=== PATIENT | female | born 1990 | race Hispanic/Latino ===

== ENCOUNTER 2022-12-10 11:00 | Observation (INO) | payer MEDICAID ==
[~2022-12-10] VITALS: Ht 157.5 cm; Wt 132.4 kg
[2022-12-10 10:22] VITALS: BP 135/63
[~2022-12-10 11:00] MED LIST: MVIT PO
[2022-12-15] VITALS (26 sets, daily range): BP systolic 103–146; BP diastolic 42–85
[2022-12-15] MEDS ORDERED: LACTATED RINGERS 1000ML 1,000 ML IV ONE (09:06)
[2022-12-15] MEDS ORDERED: CEFAZOLIN SODIUM 1 GM VIAL ONE (09:06)
[2022-12-15] MEDS ORDERED: SUCCINYLCHOLINE CHLORIDE 20 MG/ML 10 ML VIAL ONE (12:09)
[2022-12-15] MEDS ORDERED: PROPOFOL 10 MG/ML 20ML VIAL IV ONE (12:09)
[2022-12-15] MEDS ORDERED: MIDAZOLAM HCL 1 MG/ML 2ML VIAL ONE ×2 (12:10→14:19)
[2022-12-15] MEDS ORDERED: ROCURONIUM 10MG/1ML SYR 10 MG/ML ML ONE (12:10)
[2022-12-15] MEDS ORDERED: FENTANYL CITRATE PF 50 MCG/1 ML 2ML VIAL ONE ×2 (12:10→13:29)
[2022-12-15] MEDS ORDERED: ONDANSETRON 4MG INJ IVP PRN (13:30)
[2022-12-15] MEDS ORDERED: ACETAMINOPHEN 325 MG TAB PO PRN (13:30)
[2022-12-15] MEDS ORDERED: MORPHINE 2 MG SYG IV PRN (13:30)
[2022-12-15] MEDS ORDERED: INSULIN HUMULIN R 100 UNIT/ML 3ML SQ PRN (13:30)
[2022-12-15] MEDS ORDERED: MORPHINE 4 MG SYG IV PRN (13:30)
[2022-12-15] MEDS ORDERED: BUPIVACAINE/PF 0.5% 30ML VIAL ONE (13:46)
[2022-12-15] MEDS ORDERED: MEPERIDINE-PF 25 MG/ML SYG ONE ×3 (13:54→14:13)
[2022-12-15] MEDS: CEFAZOLIN SODIUM 2 GM VIAL IVPB SCH ×2 (15:42→21:06)
[2022-12-15] MEDS: LACTATED RINGERS 1000ML 1,000 ML IV SCH (16:48)
[2022-12-15] MEDS: KETOROLAC 30MG VIAL (30MG/ML) IM PRN ×2 (17:13→23:46)
[2022-12-15] MEDS: HYDROMORPHONE 1 MG INJ IVP PRN (18:38)
[2022-12-16] MEDS: LACTATED RINGERS 1000ML 1,000 ML IV SCH ×2 (01:48→16:10)
[2022-12-16 02:30] VITALS: BP 98/80
[2022-12-16] MEDS: HYDROMORPHONE 1 MG INJ IVP PRN ×4 (03:47→17:52)
[2022-12-16 04:22] VITALS: BP 98/80
[2022-12-16 05:10] LABS: BASOPHILS % (AUTO) 0.1 % (0.0-5.0); EOSINOPHILS % (AUTO) 1.1 % (0.0-8.0); LYMPHOCYTES % (AUTO) 20.2 % (21.0-51.0); MEAN CORPUSCULAR HEMOGLOBIN 26.3 pg (27.0-33.0); MEAN CORPUSCULAR VOLUME 84.7 fL (79-99); NEUTROPHILS % (AUTO) 73.1 % (40.0-77.0); PLATELET COUNT (AUTO) 262 K/uL (130-400); RED BLOOD CELL COUNT(AUTO) 4.72 MIL/uL (4.00-5.50); RED CELL DISTRIBUTION WIDTH 13.6 % (11.0-15.5); WHITE BLOOD COUNT (AUTO) 13.7 K/uL (4.8-10.8)
[2022-12-16 08:17] VITALS: BP 123/58
[2022-12-16 11:27] VITALS: BP 119/70
[2022-12-16] MEDS: HEPARIN 5,000 UNIT VIAL SQ SCH ×2 (14:11→20:37)
[2022-12-16] MEDS: KETOROLAC 30MG VIAL (30MG/ML) IM PRN ×2 (14:30→20:39)
[2022-12-16 16:12] VITALS: BP 112/69
[2022-12-16 19:00] VITALS: BP 155/75
[2022-12-17] VITALS: BP 121/79
[2022-12-17] MEDS: HYDROMORPHONE 1 MG INJ IVP PRN (02:31)
[2022-12-17 04:00] VITALS: BP 128/75
[2022-12-17] MEDS: LACTATED RINGERS 1000ML 1,000 ML IV SCH (04:42)
[2022-12-17 05:26] LABS: BASOPHILS % (AUTO) 0.1 % (0.0-5.0); EOSINOPHILS % (AUTO) 3.5 % (0.0-8.0); HEMATOCRIT 39.7 % (36-48); LYMPHOCYTES % (AUTO) 23.9 % (21.0-51.0); MEAN CORPUSCULAR HGB CONC 30.7 g/dL (32.0-36.0); MEAN CORPUSCULAR VOLUME 84.5 fL (79-99); MONOCYTES % (AUTO) 5.6 % (3.0-13.0); NEUTROPHILS % (AUTO) 66.5 % (40.0-77.0); PLATELET COUNT (AUTO) 209 K/uL (130-400); RED CELL DISTRIBUTION WIDTH 13.7 % (11.0-15.5); WHITE BLOOD COUNT (AUTO) 13.8 K/uL (4.8-10.8)
[2022-12-17 07:39] VITALS: BP 131/72
[2022-12-17] MEDS: KETOROLAC 30MG VIAL (30MG/ML) IM PRN (09:47)
[2022-12-17] MEDS: HEPARIN 5,000 UNIT VIAL SQ SCH ×2 (09:52→14:00)
[2022-12-17 11:28] VITALS: BP 118/62
== END 2022-12-17 16:52 | disposition home or self-care (01) ==
LOC: DAHIP 12-15 08:55 → EDSTATUS 12-15 11:00 → 4DH 12-15 14:32
PROVIDERS: ADMIT Surgery; ATTEND Surgery
DX: K43.2 Incisional hernia without obstruction or gangrene (principal); Z20.822 Contact with and (suspected) exposure to COVID-19; I10 Essential (primary) hypertension; E66.9 Obesity, unspecified; Z79.899 Other long term (current) drug therapy
CPT/HCPCS: 84703; 87426; 36415 ×3; 49595; 96365; 96366; 96375; 82948 ×6; 81025; 96376 ×2; 96372 ×2; 85025 ×2; A6260; G0378 ×50; A4663; J7120 ×2; A4452; A4649; J3010 ×2; J0690 ×3; J1170 ×6; J0330; J2250 ×2; J3490; J2270; J1885 ×5; S0020; J2175 ×3; C1781; A4930; A4215; A4223; A4222; A4221; A4600; J1644 ×4; J2704

== ENCOUNTER → 2023-06-24 | Outpatient (CLI) | payer MEDICAID ==
[2023-06-24 08:17] LABS: INR 0.94 (0.85-1.15); PROTHROMBIN TIME 10.9 SEC (9.6-11.6)
[2023-06-24 08:18] LABS: PARTIAL THROMBOPLASTIN TIME 28.4 SEC (26.3-35.5)
== END | disposition home or self-care (01) ==
LOC: RAH 07:08
PROVIDERS: ATTEND Surgery
DX: K91.873 Postprocedural seroma of a digestive system organ or structure following other procedure (principal); R10.9 Unspecified abdominal pain; I10 Essential (primary) hypertension; Z98.890 Other specified postprocedural states; Z83.3 Family history of diabetes mellitus; Z82.49 Family history of ischemic heart disease and other diseases of the circulatory system; Z79.01 Long term (current) use of anticoagulants
CPT/HCPCS: 20610; 36415; 49406; 75989; 76942; 85610; 85730; 87071; 87205